=== PATIENT | female | born 1975 | race Caucasian/White ===

== ENCOUNTER 2022-04-21 00:40 | Emergency (ER) | payer OTHER ==
[~2022-04-21] VITALS: Ht 162.6 cm; Wt 97.1 kg
[2022-04-21 00:47] VITALS: BP 136/64
--- NOTE | 2022-04-21 00:51 | NUR ---
PT AMBULATED TO LOBBY. PROVIDED WITH URINE SPECIMEN CUP.
--- NOTE | 2022-04-21 01:45 | NUR ---
COVERING PRIMARY RN FOR LUNCH RELIEF. SEE COMPLETE ASSESSMENT
--- NOTE | 2022-04-21 01:48 | NUR ---
Dr. Castellano examining patient.
[2022-04-21] MEDS ORDERED: ONDANSETRON 4 MG ODT PO ONE ×2 (01:55→04:20)
--- NOTE | 2022-04-21 02:00 | NUR ---
Blood for labwork drawn from left arm per cookie mixer helper. Patient tolerated well.
[2022-04-21 02:05] LABS: APPEARANCE,URINE CLOUDY (CLEAR); BILIRUBIN,URINE NEGATIVE (NEGATIVE); BLOOD, URINE 3+ (NEGATIVE); COLOR,URINE YELLOW (YELLOW); LEUKOCYTE ESTERASE ,URINE NEGATIVE (NEGATIVE); NITRITE, URINE NEGATIVE (NEGATIVE); PH,URINE 5.5 (5.0-9.0); UGLUCOSE NEGATIVE (NEGATIVE)
[2022-04-21 02:12] LABS: RBC,URINE 0-5 /HPF (0-5)
[2022-04-21 02:14] LABS: ANION GAP 14.6 (8-16); CREATININE 0.8 mg/dL (0.6-1.3); POTASSIUM 3.6 mmol/L (3.5-5.1)
[2022-04-21 02:15] LABS: WBC,URINE 16-25 (MOD) /HPF (0-5)
[2022-04-21 02:19] LABS: ALBUMIN 3.3 g/dL (3.4-5.0); TOTAL BILIRUBIN 0.4 mg/dL (0.0-1.0)
[2022-04-21 02:29] LABS: BASOPHILS % (AUTO) 0.3 % (0.0-2.0); EOSINOPHILS % (AUTO) 0.1 % (0.0-4.0); HEMATOCRIT 26.6 % (36-48); HEMOGLOBIN 8.2 g/dL (12.0-16.0); LYMPHOCYTES # (AUTO) 0.5 K/uL (2.5-16.5); LYMPHOCYTES % (AUTO) 5.2 % (20.5-51.1); MEAN CORPUSCULAR HEMOGLOBIN 20 pg (27-31); MEAN CORPUSCULAR HGB CONC 31 g/dL (33-37); MEAN CORPUSCULAR VOLUME 65.1 fL (80-94); MONOCYTES # (AUTO) 0.2 K/uL (0.8-1.0); MONOCYTES % (AUTO) 2.1 % (1.7-9.3); NEUTROPHILS # (AUTO) 9.4 K/uL (1.8-7.7); NEUTROPHILS % (AUTO) 92.3 % (42.2-75.2); PLATELET COUNT (AUTO) 383 K/uL (140-450); RED BLOOD CELL COUNT(AUTO) 4.09 MIL/uL (4.20-5.40); RED CELL DISTRIBUTION WIDTH 18.9 % (11.6-13.7); WHITE BLOOD COUNT (AUTO) 10.2 K/uL (4.8-10.8)
--- NOTE | 2022-04-21 02:34 | NUR ---
Patient returned back from CT scan via wheel chair.
--- NOTE | 2022-04-21 04:14 | NUR ---
Patient reported, had abdominal pain and nausea, Dr. Castellano notified.
[2022-04-21] MEDS ORDERED: KETOROLAC 60 MG/2 ML VIAL IM ONE (04:20)
--- NOTE | 2022-04-21 05:22 | NUR ---
Patient appears to be resting comfortably in bed. Vital Signs within normal limits. Respirations even and unlabored.
[2022-04-21] MEDS ORDERED: IBUP-2213 PO (05:54)
[2022-04-21] MEDS ORDERED: MAGN296S48 PO (05:54)
[2022-04-21] MEDS ORDERED: CIPR500T4 PO (05:54)
[2022-04-21] MEDS ORDERED: MIRABULK PO (05:54)
[2022-04-21 06:05] VITALS: BP 122/72
--- NOTE | 2022-04-21 06:05 | NUR ---
Patient discharged with v/s stable. Written and verbal after care instructions given and explained for UTI, Constipation. Patient alert, oriented and verbalized understanding of instructions. Ambulatory with steady gait. All questions addressed prior to discharge. ID band removed. Patient advised to follow up with PMD. Rx of Ciprofloxacin HCL, Citroma, Miralax and Ibuprofen given. Patient educated on indication of medication including possible reaction and side effects. Opportunity to ask questions provided and answered.
== END 2022-04-21 06:05 | disposition home or self-care (01) ==
LOC: MED 00:40
DX: K59.00 Constipation, unspecified (principal); N39.0 Urinary tract infection, site not specified; Z79.1 Long term (current) use of non-steroidal anti-inflammatories (NSAID); Z79.2 Long term (current) use of antibiotics; Z79.899 Other long term (current) drug therapy
CPT/HCPCS: 36415; 74176; 80053; 81001; 83690; 85025; 96372; 99284; J1885; Q0162

== ENCOUNTER 2022-07-08 21:00 | Emergency (ER) | payer OTHER ==
[~2022-07-08] VITALS: Ht 162.6 cm; Wt 90.3 kg
[~2022-07-08 21:00] MED LIST: CIPR500T4 PO; IBUP-2213 PO; MAGN296S48 PO; MIRABULK PO
[2022-07-08 23:05] VITALS: BP 83/43
[2022-07-08] MEDS ORDERED: MORPHINE SULFATE 2 MG/ML SYR IVP ONE (23:15)
[2022-07-08] MEDS ORDERED: ONDANSETRON 4 MG/2 ML VIAL IVP ONE (23:15)
[2022-07-08 23:35] LABS: BASOPHILS % (AUTO) 0.2 % (0.0-2.0); EOSINOPHILS % (AUTO) 0.2 % (0.0-4.0); HEMATOCRIT 35.5 % (36-48); HEMOGLOBIN 11.3 g/dL (12.0-16.0); LYMPHOCYTES # (AUTO) 0.3 K/uL (2.5-16.5); MEAN CORPUSCULAR HEMOGLOBIN 26 pg (27-31); MEAN CORPUSCULAR HGB CONC 32 g/dL (33-37); MEAN CORPUSCULAR VOLUME 80.2 fL (80-94); MONOCYTES # (AUTO) 0.4 K/uL (0.8-1.0); MONOCYTES % (AUTO) 4.6 % (1.7-9.3); NEUTROPHILS # (AUTO) 7.8 K/uL (1.8-7.7); PLATELET COUNT (AUTO) 226 K/uL (140-450); RED BLOOD CELL COUNT(AUTO) 4.42 MIL/uL (4.20-5.40); RED CELL DISTRIBUTION WIDTH 27.9 % (11.6-13.7); WHITE BLOOD COUNT (AUTO) 8.5 K/uL (4.8-10.8)
[2022-07-08 23:52] LABS: ALBUMIN 3.3 g/dL (3.4-5.0); ANION GAP 12.2 (8-16); CARBON DIOXIDE 25.4 mmol/L (21-32); CREATININE 1.1 mg/dL (0.6-1.3); POTASSIUM 3.6 mmol/L (3.5-5.1); TOTAL BILIRUBIN 0.4 mg/dL (0.0-1.0)
[2022-07-08 23:55] LABS: APPEARANCE,URINE CLEAR (CLEAR); BILIRUBIN,URINE NEGATIVE (NEGATIVE); BLOOD, URINE NEGATIVE (NEGATIVE); COLOR,URINE YELLOW (YELLOW); LEUKOCYTE ESTERASE ,URINE TRACE (NEGATIVE); NITRITE, URINE NEGATIVE (NEGATIVE); PH,URINE 6.5 (5.0-9.0); UGLUCOSE NEGATIVE (NEGATIVE)
[2022-07-09 00:10] LABS: PROTHROMBIN TIME 10.5 secs (10.8-13.4)
[2022-07-09] MEDS ORDERED: NACL 0.9% 1,000 ML IV ONE (00:10)
[2022-07-09] MEDS ORDERED: DOCU-300 PO (06:16)
[2022-07-09 06:20] VITALS: BP 95/62
== END 2022-07-09 06:20 | disposition home or self-care (01) ==
LOC: MED 21:00
DX: R10.84 Generalized abdominal pain (principal); Z20.822 Contact with and (suspected) exposure to COVID-19; Z90.89 Acquired absence of other organs; Z98.890 Other specified postprocedural states
CPT/HCPCS: 36415; 74177; 80053; 81003; 81025; 83605; 85025; 85610; 85730; 87040; 87086; 87426; 96361; 96374; 96375; 99285; J2270; J2405; Q9967

== ENCOUNTER 2024-07-16 13:40 | Emergency (ER) | payer OTHER ==
[~2024-07-16] VITALS: Ht 160 cm; Wt 100.7 kg
[~2024-07-16 13:40] MED LIST changes: +DOCU-300 PO
[2024-07-16 13:42] VITALS: BP 106/66; PULSE 85; RESP 17; TEMP 98.1; O2SAT 95
--- NOTE | 2024-07-16 13:52 | NUR ---
PT AMB TO BED 6
--- NOTE | 2024-07-16 13:57 | NUR ---
ADEEL TAPIA AT BEDSIDE FOR EVALUATION
[2024-07-16 14:00] VITALS: O2SAT 95
--- NOTE | 2024-07-16 14:00 | NUR ---
48YO FEMALE PT C/O SHARP 10/10 LOWER BACK PAIN X2DAYS. REPORTS SUDDEN ONSET. PAIN AT MOST ON MOVEMENT. DENIES INJURY, NUMBING, LOSS OF SENSATION OR RELIEF AFTER NORCO. PT AAOX4, HOB POSITIONED PER COMFORT. CALL LIGHT WITHIN REACH. HX: DENIES NKA
[2024-07-16] MEDS: LIDOCAINE 5% 1 EA PATCH TP STA (14:12)
[2024-07-16] MEDS: KETOROLAC 60 MG/2 ML VIAL IM STA (14:12)
[2024-07-16] MEDS ORDERED: KETO10TA2 PO (15:09)
[2024-07-16] MEDS ORDERED: METH-1681 PO (15:09)
[2024-07-16] MEDS ORDERED: LID5T TP (15:09)
[2024-07-16 15:14] VITALS: BP 111/66; PULSE 82; RESP 16; TEMP 98.1; O2SAT 97
--- NOTE | 2024-07-16 15:14 | NUR ---
Patient discharged with v/s stable. Written and verbal after care instructions FOR LUMBAR SPRAIN given and explained. Patient alert, oriented and verbalized understanding of instructions. Ambulatory with steady gait. All questions addressed prior to discharge. ID band removed. Patient advised to follow up with PMD. Rx of LIDODERM PATCH, ROBAXIN AND KETOROLAC HYD given. Patient educated on indication of medication including possible reaction and side effects. Opportunity to ask questions provided and answered.
--- NOTE | 2024-07-16 15:19 | NUR ---
Chart checked and completed. The patient's care was reviewed and supervised by SHAKILA RICHARDSON RN.
[2024-07-25] MEDS ORDERED: GABA300C PO (14:14)
[2024-07-25] MEDS ORDERED: ACET-9525 PO (14:14)
[2024-07-25] MEDS ORDERED: CYCL-657 PO (14:14)
[2024-07-25] MEDS ORDERED: IBUP-2213 PO (14:14)
== END 2024-07-16 15:14 | disposition home or self-care (01) ==
LOC: MED 13:40
DX: S39.012A Strain of muscle, fascia and tendon of lower back, initial encounter (principal); Z79.899 Other long term (current) drug therapy; X58.XXXA Exposure to other specified factors, initial encounter; Y92.89 Other specified places as the place of occurrence of the external cause; Y93.89 Activity, other specified; Y99.8 Other external cause status
CPT/HCPCS: 96372; 99283; J1885